=== PATIENT | female | born 1965 | race African-American/Black ===

== ENCOUNTER 2016-07-14 07:26 | Inpatient (IN) | payer BC ==
--- NOTE | ~2016-07-14 | HP ---
History And Physical [place] [id number] [facility] [place]. [address] NAME: KELSEY METZ : 65 STATUS : ADM IN [facility]#: [id number] AGE: 51 ADM/REG DATE : 07/14/16 MR#: [id number] REPORT SERV DATE: 07/14/16 DICTATED BY: MAHENDRA TA DATE: 07/14/16 REPORT STATUS : Draft TRANSCRIBED BY: MODL DATE: 07/14/16 DATE OF ADMISSION: 07/14/2016 Mrs. Kelsey Metz enters through the emergency room with iuh-EA-dpexnnh elevation FL. CVD PHYSICIAN: Mahendra Ta M.D. HISTORY OF PRESENT ILLNESS: Mrs. Kelsey Metz has been in good health with only history of cigarette smoking and hypertension. She got up at midnight with a squeezing chest pain. She was uncertain what it was and walked around trying to tolerate it. She tried to rub some mint on her chest but finally came to the emergency room. There she was found to have T-wave inversion and positive troponin. She is now scheduled for proceeding to cardiac catheterization lab. Risks and benefits of this have been discussed with her. REVIEW OF SYSTEMS: No previous history of syncope, presyncope, chest pain, chest discomfort, PND, lower extremity edema, or palpitations. Rest is negative. PAST MEDICAL HISTORY: 1. Hypertension, for which she is on losartan. 2. Hypothyroidism, for which she is on levothyroxine. SOCIAL HISTORY: She works for [employer]. She has an active job there. She does smoke. She does not drink. FAMILY HISTORY: Negative for early heart disease. PHYSICAL EXAMINATION: VITAL SIGNS: Blood pressure 180/70 on first admission, with treatment has now declined to 160/30. GENERAL: Resting comfortably, nutritional status appears adequate. EYES: PERRLA. LUNGS: No labored use of accessory muscles. Without rales or wheezes. COR: PMI is not displaced. No thrills or heaves. NL S1 and S2. No S3, murmur, click or rub. PULSES: Carotids without bruits. ABD: +BS, nontender. EXT: No cyanosis, clubbing or edema. SKIN: No petechiae. NEURO: In mild distress. Does not appear anxious or depressed. Use my normal sheet for the rest of the except where it says alert oriented put in mild distress. LABORATORY EVALUATION: 1. EKG shows diffuse T-wave inversion in the anterior leads. 2. Troponin is positive at 6. History And Physical [address] [address] NAME: KELSEY METZ : 65 STATUS : ADM IN PAT#: [id number] AGE: 51 ADM/REG DATE : 07/14/16 MR#: [id number] REPORT SERV DATE: 07/14/16 DICTATED BY: MAHENDRA TA DATE: 07/14/16 REPORT STATUS : Draft TRANSCRIBED BY: MODL DATE: 07/14/16 3. Renal function is normal with a creatinine of 0.9. White count is elevated at 12. ASSESSMENT: At this time, she is having continued chest discomfort. I will try to expedite her trip to the labor relations director, and we will continue medical treatment with oxygen, heparin, aspirin. NAYANA/ELLY Mahendra Ta M.D. / [id number] CC: Jonathan Cummings
--- NOTE | ~2016-07-14 | HP ---
History And Physical [address] [address] NAME: KELSEY HERRERA : 65 STATUS : REG ER PAT#: [id number] AGE: 51 ADM/REG DATE : 07/14/16 MR#: [id number] REPORT SERV DATE: 07/14/16 DICTATED BY: MAHENDRA TA DATE: 07/14/16 REPORT STATUS : Draft TRANSCRIBED BY: ELLY DATE: 07/14/16 DATE OF ADMISSION: 07/14/2016 Kelsey Herrera is a 51-year-old female, who enters through the emergency room with non-ST- segment elevation ME. CVD PHYSICIAN: Dr. Mahendra Ta. PRIMARY CARE PHYSICIAN: DICTATION ENDS HERE. NAYANA/ELLY Mahendra Ta M.D. / [id number]
[2016-07-14 06:12] LABS: BASOPHILS 0.1 %; BASOPHILS ABSOLUTE 0.01 10/3/uL (0.0-0.16); EOSINOPHILS 0.9 %; EOSINOPHILS ABSOLUTE 0.11 10/3/uL (0.0-0.53); HEMOGLOBIN 14.2 g/dL (12.0-16.0); IMMATURE GRANULOCYTES 0.1 %; IMMATURE GRANULOCYTES ABSOLUTE 0.01 10/3/uL (0.0-0.11); MEAN CORPUS HGB CONC 35.2 g/dL (32.0-36.0); MEAN CORPUSCULAR HEMOGLOB 30.9 pg (26.0-34.0); MEAN CORPUSCULAR VOLUME 87.6 fL (80-100); MEAN PLATELET VOLUME 9.4 fL (9.2-13.0); MONOCYTES 7.3 %; MONOCYTES ABSOLUTE 0.88 10/3/uL (0.21-1.20); NEUTROPHILS 71.6 %; NEUTROPHILS ABSOLUTE 8.62 10/3/uL (2.02-8.40); PLATELET COUNT 321 10/3/uL (150-400); RBC DISTRIBUTION WIDTH 13.7 % (12.0-16.0)
[2016-07-14 06:18] LABS: ER CBC TAT 0 Hrs 07 Mins; HEMATOCRIT 40.3 % (36.0-48.0); MANUAL DIFF NO %
[2016-07-14 06:21] LABS: PARTIAL THROMBO TIME 25.8 SEC (22.5-37.2); PROTIME (NOT ORD) 12.9 SEC (12.0-14.5)
[2016-07-14 06:30] LABS: BUN (BLOOD UREA NITROGEN) 16 MG/DL (6-23); CHLORIDE, SERUM 109 MMOL/L (96-112); CO2 (CARBON DIOXIDE) 21 MMOL/L (24-34); CREATININE 0.91 MG/DL (0.55-1.02); GFR AFRICAN AMERICAN 85 ML/MIN (>=60); GFR NON AFRICAN AMERICAN 73 ML/MIN (>=60); GLUCOSE, SERUM 118 MG/DL (60-99); POTASSIUM, SERUM 4.3 MMOL/L (3.5-5.3); SODIUM, SERUM 142 MMOL/L (135-148)
[2016-07-14 06:31] LABS: CHEST PAIN PROFILE TAT 0 Hrs 26 Mins; TROPONIN I 5.64 NG/ML (<0.05)
[~2016-07-14 07:26] MED LIST: ASA5GR PO; CAT1 PO; COZ25 PO; ESTRACE0.5 MG PO; LEVOTHYROXIN25 MCG PO; MULTIPLE VIT PO
[2016-07-14 13:14] LABS: CK-MB 222.6 NG/ML; CKMB INDEX (NOT ORD) 9.7
[2016-07-14 21:07] LABS: CK-MB 210.2 NG/ML
[2016-07-14 21:14] LABS: CKMB INDEX (NOT ORD) 7.1
[2016-07-15 05:11] LABS: CALCIUM, SERUM 8.6 MG/DL (8.5-10.4); CHLORIDE, SERUM 107 MMOL/L (96-112); CHOL/HDL RATIO(NOT ORDER) 3.2 (0-5); CHOLESTEROL 200 MG/DL (< 200); CK-MB 108.8 NG/ML; CO2 (CARBON DIOXIDE) 23 MMOL/L (24-34); GFR AFRICAN AMERICAN 116 ML/MIN (>=60); GFR NON AFRICAN AMERICAN 100 ML/MIN (>=60); GLUCOSE, SERUM 101 MG/DL (60-99); HDL CHOLESTEROL 63 MG/DL (> 49); LDL CHOLESTEROL 92 MG/DL (< 130); NON-HDL CHOLESTEROL 137 MG/DL (< 160); POTASSIUM, SERUM 3.6 MMOL/L (3.5-5.3); SODIUM, SERUM 141 MMOL/L (135-148); TRIGLYCERIDE 229 MG/DL (< 150)
[2016-07-15 05:12] LABS: BASOPHILS 0.1 %; BASOPHILS ABSOLUTE 0.01 10/3/uL (0.0-0.16); EOSINOPHILS 1.5 %; EOSINOPHILS ABSOLUTE 0.16 10/3/uL (0.0-0.53); HEMOGLOBIN 12.2 g/dL (12.0-16.0); IMMATURE GRANULOCYTES 0.2 %; IMMATURE GRANULOCYTES ABSOLUTE 0.02 10/3/uL (0.0-0.11); LYMPHOCYTES ABSOLUTE 2.35 10/3/uL (0.67-4.30); MEAN CORPUS HGB CONC 34.3 g/dL (32.0-36.0); MEAN CORPUSCULAR HEMOGLOB 30.1 pg (26.0-34.0); MEAN CORPUSCULAR VOLUME 87.9 fL (80-100); MEAN PLATELET VOLUME 9.3 fL (9.2-13.0); MONOCYTES 9.6 %; MONOCYTES ABSOLUTE 1.02 10/3/uL (0.21-1.20); NEUTROPHILS 66.6 %; NEUTROPHILS ABSOLUTE 7.12 10/3/uL (2.02-8.40); PLATELET COUNT 279 10/3/uL (150-400); RBC DISTRIBUTION WIDTH 13.6 % (12.0-16.0); RED CELL COUNT 4.05 10/6/uL (4.0-5.6); WHITE BLOOD CELLS 10.7 10/3/uL (4.5-10.5)
[2016-07-15 05:17] LABS: HEMATOCRIT 35.6 % (36.0-48.0); MANUAL DIFF NO %
[2016-07-15 05:26] LABS: BUN (BLOOD UREA NITROGEN) 5 MG/DL (6-23); CKMB INDEX (NOT ORD) 5.3; CPK 2040 U/L (0-200)
[2016-07-15 12:31] LABS: CK-MB 53.7 NG/ML
[2016-07-15 12:32] LABS: CKMB INDEX (NOT ORD) 3.5
[2016-07-16 03:16] LABS: BASOPHILS 0.1 %; BASOPHILS ABSOLUTE 0.01 10/3/uL (0.0-0.16); EOSINOPHILS ABSOLUTE 0.17 10/3/uL (0.0-0.53); HEMOGLOBIN 12.9 g/dL (12.0-16.0); IMMATURE GRANULOCYTES 0.1 %; IMMATURE GRANULOCYTES ABSOLUTE 0.01 10/3/uL (0.0-0.11); LYMPHOCYTES 29.2 %; LYMPHOCYTES ABSOLUTE 2.51 10/3/uL (0.67-4.30); MEAN CORPUS HGB CONC 33.9 g/dL (32.0-36.0); MEAN CORPUSCULAR HEMOGLOB 30.1 pg (26.0-34.0); MEAN CORPUSCULAR VOLUME 88.8 fL (80-100); MEAN PLATELET VOLUME 9.4 fL (9.2-13.0); MONOCYTES 7.4 %; MONOCYTES ABSOLUTE 0.64 10/3/uL (0.21-1.20); NEUTROPHILS 61.2 %; NEUTROPHILS ABSOLUTE 5.26 10/3/uL (2.02-8.40); PLATELET COUNT 279 10/3/uL (150-400); RBC DISTRIBUTION WIDTH 13.6 % (12.0-16.0); RED CELL COUNT 4.28 10/6/uL (4.0-5.6); WHITE BLOOD CELLS 8.6 10/3/uL (4.5-10.5)
[2016-07-16 03:17] LABS: MANUAL DIFF NO %
[2016-07-16 03:27] LABS: BUN (BLOOD UREA NITROGEN) 6 MG/DL (6-23); CALCIUM, SERUM 8.8 MG/DL (8.5-10.4); CHLORIDE, SERUM 109 MMOL/L (96-112); CO2 (CARBON DIOXIDE) 26 MMOL/L (24-34); CREATININE 0.72 MG/DL (0.55-1.02); GFR AFRICAN AMERICAN 112 ML/MIN (>=60); GFR NON AFRICAN AMERICAN 97 ML/MIN (>=60); GLUCOSE, SERUM 100 MG/DL (60-99); POTASSIUM, SERUM 3.8 MMOL/L (3.5-5.3); SODIUM, SERUM 143 MMOL/L (135-148)
[2016-07-16] MEDS ORDERED: ASAB PO (08:05)
[2016-07-16] MEDS ORDERED: LIPITOR40 PO (08:05)
[2016-07-16] MEDS ORDERED: COREG6 PO (08:05)
[2016-07-16] MEDS ORDERED: BRILINTA90 MG PO (08:06)
[2016-07-16] MEDS ORDERED: NTG150 SL (08:07)
== END 2016-07-16 09:45 | disposition home or self-care (01) | DRG 246 ==
LOC: ER 07:26 → CCU 10:49
PROVIDERS: Internal Medicine Cardiovascular Disease; Specialist
PROC: 027137Z Dilation of Coronary Artery, Two Arteries with Four or More Drug-eluting Intraluminal Devices, Percutaneous Approach (ICD-10-PCS; principal; 2016-07-14)
PROC: 4A023N7 Measurement of Cardiac Sampling and Pressure, Left Heart, Percutaneous Approach (ICD-10-PCS; 2016-07-14)
PROC: B2151ZZ Fluoroscopy of Left Heart using Low Osmolar Contrast (ICD-10-PCS; 2016-07-14)
PROC: B2111ZZ Fluoroscopy of Multiple Coronary Arteries using Low Osmolar Contrast (ICD-10-PCS; 2016-07-14)
DX: I21.4 Non-ST elevation (NSTEMI) myocardial infarction (principal); I50.21 Acute systolic (congestive) heart failure; I10 Essential (primary) hypertension; I25.10 Atherosclerotic heart disease of native coronary artery without angina pectoris; E03.9 Hypothyroidism, unspecified; E78.5 Hyperlipidemia, unspecified; Z87.891 Personal history of nicotine dependence
CPT/HCPCS: 71010; 80048; 80061; 82550; 82553; 83735; 84484; 85025; 85610; 85730; 87641; 93005; 93458; 96374; 96375; 99152; 99153; 99291; A9270-GY; C1725; C1769; C1874; C1887; C1894; C8929; C9600; C9601; J0583; J2250; J2405; J3010; Q9957; Q9967